=== PATIENT | female | born 1960 | race Caucasian/White ===

== ENCOUNTER 2019-02-09 12:13 | Outpatient (CLI) | payer MEDICAID | END 2019-02-09 12:14 | disposition home or self-care (01) | LOC: RAD 12:13 | DX: Z12.31 Encounter for screening mammogram for malignant neoplasm of breast (principal) ==

== ENCOUNTER 2019-03-23 11:24 | Outpatient (CLI) | payer MEDICAID | END 2019-03-23 11:25 | disposition home or self-care (01) | LOC: RAD 11:24 ==